=== PATIENT | female | born 1990 | race American Indian/Alaskan Native ===

== ENCOUNTER 2017-11-13 00:36 | Emergency (ER) | payer SELFPAY ==
[2017-11-13] MEDS ORDERED: NARCAN 2 MG/2 ML ONE (01:13)
[2017-11-13] MEDS ORDERED: NARCAN 2 MG/2 ML IV ONE (01:15)
--- NOTE | 2017-11-13 01:23 | Emergency Department Report ---
ED Altered Mental Status HPI - General Stated Complaint: RT EYE LACERATION/ETOH Time Seen by Provider: 11/13/17 01:22 - History of Present Illness Initial Comments: Brought by EMS for evaluation of ethanol intoxication altered mental status does arouse to sternal rub good saturation good airway but intoxicated and uncooperative with 1 cm laceration just below the right eyebrow. Patient intoxicated and no answer any other questions MD Complaint: altered mental status, confusion, intoxication -: unknown Context: alcohol abuse - Related Data Previous Rx's Medication Instructions Recorded Last Taken Type Omeprazole [PriLOSEC] 20 mg PO QDAY #30 capsule. 05/23/14 06/10/14 Rx Ciprofloxacin HCl [Cipro] 500 mg PO Q12H #14 tab 06/12/14 Unknown Rx HYDROcodone/APAP 5-325 [[place] 1 each PO Q6HR PRN #10 tablet 06/12/14 Unknown Rx 5-325 mg TAB] Ondansetron [Zofran Odt] 4 mg PO Q4-6H PRN #14 tab.rapdis 06/12/14 Unknown Rx Pantoprazole [Protonix] 40 mg PO QDAY #30 tablet 06/12/14 Unknown Rx Ranitidine HCl [Zantac] 300 mg PO QDAY #30 tablet 06/12/14 Unknown Rx Butalbit/Acetamin/Caff/Codeine 1 each PO Q6H #12 capsule 06/15/14 Unknown Rx [Fioricet-Cod [id number] Cap] Ibuprofen [Motrin] 600 mg PO Q8H PRN #15 tablet 06/15/14 Unknown Rx Ondansetron [Zofran Odt] 4 mg PO Q6H #20 tab.rapdis 04/04/15 Unknown Rx Sulfamethoxazole/Trimethoprim 1 each PO BID #14 tablet 04/04/15 Unknown Rx [Bactrim Ds] traMADol [Ultram] 50 mg PO Q6HR PRN #14 tablet 04/04/15 Unknown Rx Allergies Allergy/AdvReac Type Severity Reaction Status Date / Time No Known Allergies Allergy Verified 06/12/14 00:01 ED Review of Systems ROS: Stated complaint: RT EYE LACERATION/ETOH Other details as noted in HPI Comment: Unobtainable due to pts medical conditions Constitutional: denies: diaphoresis, fever, malaise, weakness Respiratory: denies: shortness of breath, SOB with exertion ED Past Medical Hx - Past Medical History Hx GERD: Yes - Surgical History Additional Surgical History: bladder hemorhoid, - Social History Smoking Status: Current Some Day Smoker Substance Use Type: None - Medications Home Medications: Home Medications Medication Instructions Recorded Confirmed Last Taken Type Omeprazole [PriLOSEC] 20 mg PO QDAY #30 capsule. 05/23/14 06/12/14 06/10/14 Rx Ciprofloxacin HCl [Cipro] 500 mg PO Q12H #14 tab 06/12/14 Unknown Rx HYDROcodone/APAP 5-325 [[place] 1 each PO Q6HR PRN #10 tablet 06/12/14 Unknown Rx 5-325 mg TAB] Ondansetron [Zofran Odt] 4 mg PO Q4-6H PRN #14 tab.rapdis 06/12/14 Unknown Rx Pantoprazole [Protonix] 40 mg PO QDAY #30 tablet 06/12/14 Unknown Rx Ranitidine HCl [Zantac] 300 mg PO QDAY #30 tablet 06/12/14 Unknown Rx Butalbit/Acetamin/Caff/Codeine 1 each PO Q6H #12 capsule 06/15/14 Unknown Rx [Fioricet-Cod [id number] Cap] Ibuprofen [Motrin] 600 mg PO Q8H PRN #15 tablet 06/15/14 Unknown Rx Ondansetron [Zofran Odt] 4 mg PO Q6H #20 tab.rapdis 04/04/15 Unknown Rx Sulfamethoxazole/Trimethoprim 1 each PO BID #14 tablet 04/04/15 Unknown Rx [Bactrim Ds] traMADol [Ultram] 50 mg PO Q6HR PRN #14 tablet 04/04/15 Unknown Rx ED Physical Exam - General Limitations: Altered Mental Status General appearance: appears intoxicated - Head Head exam: Present: other (laceration just below the right eyebrow) - Eye Eye exam: Present: PERRL, EOMI Pupils: Present: normal accommodation - ENT ENT exam: Present: normal exam, normal orophraynx, other (protecting airway with good gag) - Neck Neck exam: Present: normal inspection - Respiratory Respiratory exam: Present: normal lung sounds bilaterally. Absent: respiratory distress, wheezes, rales, rhonchi, stridor, accessory muscle use - Cardiovascular Cardiovascular Exam: Present: regular rate, normal rhythm, normal heart sounds. Absent: rubs, gallop - GI/Abdominal GI/Abdominal exam: Present: soft. Absent: distended, tenderness, guarding, rebound, mass, bruit, pulsatile mass - Extremities Exam Extremities exam: Present: normal inspection - Neurological Exam Neurological exam: Absent: motor sensory deficit ED Course Vital Signs 11/13/17 11/13/17 11/13/17 01:10 01:16 01:30 Pulse Rate 75 71 Respiratory 18 24 21 Rate Blood Pressure 110/70 100/66 O2 Sat by Pulse 95 99 Oximetry 11/13/17 11/13/17 11/13/17 01:45 02:00 02:16 Pulse Rate 74 80 71 Respiratory 14 13 13 Rate Blood Pressure 109/71 109/71 106/66 O2 Sat by Pulse 98 99 100 Oximetry 11/13/17 11/13/17 11/13/17 02:30 02:46 04:08 Pulse Rate 79 87 Respiratory 18 14 12 Rate Blood Pressure 112/72 109/69 O2 Sat by Pulse 100 99 100 Oximetry 11/13/17 04:09 Pulse Rate 84 Respiratory 13 Rate Blood Pressure 109/69 O2 Sat by Pulse Oximetry - Laceration /Wound Repair Face Wound Location: face Wound Length (cm): 1 Wound's Depth, Shape: superficial Wound Explored: no foreign body removed Wound Repaired With: Steri-strips (no comp.), Dermabond - Lab Data Result diagrams: 11/13/17 01:44 11/13/17 01:44 Lab Results 11/13/17 11/13/17 11/13/17 Range/Units 01:44 01:44 01:44 WBC (4.5-11.0) K/mm3 RBC (3.65-5.03) M/mm3 Hgb (10.1-14.3) gm/dl Hct (30.3-42.9) % MCV (79-97) fl MCH (28-32) pg MCHC (30-34) % RDW (13.2-15.2) % Plt Count (140-440) K/mm3 Lymph # Add Manual Diff Total Counted Seg Neuts % (Manual) (40.0-70.0) % Band Neutrophils % % Lymphocytes % (Manual) (13.4-35.0) % Reactive Lymphs % (Man) % Monocytes % (Manual) (0.0-7.3) % Eosinophils % (Manual) (0.0-4.3) % Basophils % (Manual) (0.0-1.8) % Metamyelocytes % % Myelocytes % % Promyelocytes % % Blast Cells % % Nucleated RBC % Seg Neutrophils # Man (1.8-7.7) K/mm3 Band Neutrophils # K/mm3 Lymphocytes # (Manual) (1.2-5.4) K/mm3 Abs React Lymphs (Man) K/mm3 Monocytes # (Manual) (0.0-0.8) K/mm3 Eosinophils # (Manual) (0.0-0.4) K/mm3 Basophils # (Manual) (0.0-0.1) K/mm3 Metamyelocytes # K/mm3 Myelocytes # K/mm3 Promyelocytes # K/mm3 Blast Cells # K/mm3 WBC Morphology Hypersegmented Neuts Hyposegmented Neuts Hypogranular Neuts Smudge Cells Toxic Granulation Toxic Vacuolation Dohle Bodies Pelger-Huet Anomaly Lesley Rods Platelet Estimate Clumped Platelets Plt Clumps, EDTA Large Platelets Giant Platelets Platelet Satelliting Plt Morphology Comment RBC Morphology Dimorphic RBCs Polychromasia Hypochromasia Poikilocytosis Anisocytosis Microcytosis Macrocytosis Spherocytes Pappenheimer Bodies Sickle Cells Target Cells Tear Drop Cells Ovalocytes Helmet Cells [place]uel Garcia Bodies [place] Rings [place] Cells Bite Cells Crenated Cell Elliptocytes Acanthocytes (Spur) Rouleaux Hemoglobin C Crystals Schistocytes Malaria parasites Jourdan Bodies Hem Pathologist Commnt Sodium 148 H (137-145) mmol/L Potassium 3.7 (3.6-5.0) mmol/L Chloride 108.7 H (98-107) mmol/L Carbon Dioxide 22 (22-30) mmol/L Anion Gap 21 mmol/L BUN 10 (7-17) mg/dL Creatinine 0.7 (0.7-1.2) mg/dL Estimated GFR > 60 ml/min BUN/Creatinine Ratio 14 % Glucose 103 H (65-100) mg/dL Calcium 8.9 (8.4-10.2) mg/dL HCG, Qual Negative (Negative) Urine Color (Yellow) Urine Turbidity (Clear) Urine pH (5.0-7.0) Ur Specific [place] (1.003-1.030) Urine Protein (Negative) mg/dL Urine Glucose (UA) (Negative) mg/dL Urine Ketones (Negative) mg/dL Urine Blood (Negative) Urine Nitrite (Negative) Urine Bilirubin (Negative) Urine Urobilinogen (<2.0) mg/dL Ur Leukocyte Esterase (Negative) Urine WBC (Auto) (0.0-6.0) /HPF Urine RBC (Auto) (0.0-6.0) /HPF U Epithel Cells (Auto) (0-13.0) /HPF Urine Bacteria (Auto) (Negative) /HPF Urine Mucus /HPF Urine Opiates Screen Urine Methadone Screen Ur Barbiturates Screen Ur Phencyclidine Scrn Ur Amphetamines Screen U Benzodiazepines Scrn Urine Cocaine Screen U Marijuana (THC) Screen Drugs of Abuse Note Plasma/Serum Alcohol 0.45 H (0-0.07) gm% 11/13/17 11/13/17 11/13/17 Range/Units 01:44 04:01 04:01 WBC 9.7 (4.5-11.0) K/mm3 RBC 5.80 H (3.65-5.03) M/mm3 Hgb 13.6 (10.1-14.3) gm/dl Hct 42.4 (30.3-42.9) % MCV 73 L (79-97) fl MCH 24 L (28-32) pg MCHC 32 (30-34) % RDW 16.5 H (13.2-15.2) % Plt Count 226 (140-440) K/mm3 Lymph # Casting Machine Operator Helper Add Manual Diff Complete Total Counted 100 Seg Neuts % (Manual) 43.0 (40.0-70.0) % Band Neutrophils % 0 % Lymphocytes % (Manual) 52.0 H (13.4-35.0) % Reactive Lymphs % (Man) 1.0 % Monocytes % (Manual) 4.0 (0.0-7.3) % Eosinophils % (Manual) 0 (0.0-4.3) % Basophils % (Manual) 0 (0.0-1.8) % Metamyelocytes % 0 % Myelocytes % 0 % Promyelocytes % 0 % Blast Cells % 0 % Nucleated RBC % Not Reportable Seg Neutrophils # Man 4.2 (1.8-7.7) K/mm3 Band Neutrophils # 0.0 K/mm3 Lymphocytes # (Manual) 5.0 (1.2-5.4) K/mm3 Abs React Lymphs (Man) 0.1 K/mm3 Monocytes # (Manual) 0.4 (0.0-0.8) K/mm3 Eosinophils # (Manual) 0.0 (0.0-0.4) K/mm3 Basophils # (Manual) 0.0 (0.0-0.1) K/mm3 Metamyelocytes # 0.0 K/mm3 Myelocytes # 0.0 K/mm3 Promyelocytes # 0.0 K/mm3 Blast Cells # 0.0 K/mm3 WBC Morphology Not Reportable Hypersegmented Neuts Not Reportable Hyposegmented Neuts Not Reportable Hypogranular Neuts Not Reportable Smudge Cells Not Reportable Toxic Granulation Not Reportable Toxic Vacuolation Not Reportable Dohle Bodies Not Reportable Pelger-Huet Anomaly Not Reportable Lesley Rods Not Reportable Platelet Estimate Consistent w auto Clumped Platelets Not Reportable Plt Clumps, EDTA Not Reportable Large Platelets Not Reportable Giant Platelets Not Reportable Platelet Satelliting Not Reportable Plt Morphology Comment Not Reportable RBC Morphology Not Reportable Dimorphic RBCs Not Reportable Polychromasia Not Reportable Hypochromasia Not Reportable Poikilocytosis Not Reportable Anisocytosis Not Reportable Microcytosis Not Reportable Macrocytosis Not Reportable Spherocytes Not Reportable Pappenheimer Bodies Not Reportable Sickle Cells Not Reportable Target Cells Not Reportable Tear Drop Cells Not Reportable Ovalocytes Not Reportable Helmet Cells Not Reportable [place]-Manuel Garcia Bodies Not Reportable [place] Rings Not Reportable [place] Cells Not Reportable Bite Cells Not Reportable Crenated Cell Not Reportable Elliptocytes Not Reportable Acanthocytes (Spur) Not Reportable Rouleaux Not Reportable Hemoglobin C Crystals Not Reportable Schistocytes Not Reportable Malaria parasites Not Reportable Jourdan Bodies Not Reportable Hem Pathologist Commnt No Sodium (137-145) mmol/L Potassium (3.6-5.0) mmol/L Chloride (98-107) mmol/L Carbon Dioxide (22-30) mmol/L Anion Gap mmol/L BUN (7-17) mg/dL Creatinine (0.7-1.2) mg/dL Estimated GFR ml/min BUN/Creatinine Ratio % Glucose (65-100) mg/dL Calcium (8.4-10.2) mg/dL HCG, Qual (Negative) Urine Color Yellow (Yellow) Urine Turbidity Clear (Clear) Urine pH 6.0 (5.0-7.0) Ur Specific [place] 1.010 (1.003-1.030) Urine Protein <15 mg/dl (Negative) mg/dL Urine Glucose (UA) Neg (Negative) mg/dL Urine Ketones Neg (Negative) mg/dL Urine Blood Sm (Negative) Urine Nitrite Pos (Negative) Urine Bilirubin Neg (Negative) Urine Urobilinogen < 2.0 (<2.0) mg/dL Ur Leukocyte Esterase Neg (Negative) Urine WBC (Auto) 1.0 (0.0-6.0) /HPF Urine RBC (Auto) 3.0 (0.0-6.0) /HPF U Epithel Cells (Auto) 4.0 (0-13.0) /HPF Urine Bacteria (Auto) 1+ (Negative) /HPF Urine Mucus Few /HPF Urine Opiates Screen Presumptive negative Urine Methadone Screen Presumptive negative Ur Barbiturates Screen Presumptive negative Ur Phencyclidine Scrn Presumptive negative Ur Amphetamines Screen Presumptive negative U Benzodiazepines Scrn Presumptive negative Urine Cocaine Screen Presumptive negative U Marijuana (THC) Screen Presumptive positive Drugs of Abuse Note Disclamer Plasma/Serum Alcohol (0-0.07) gm% - Radiology Data Radiology results: report reviewed - Medical Decision Making CT head and C-spine ordered an negative by radiologist patient did have head trauma and x-rays were therefore obtained but these are negative. Laboratory studies do so as not intoxication as well as THC urinalysis and the remainder laboratory studies show dehydration otherwise unremarkable. Patient was observed in ED and is more arousable. Sx symptoms are consistent with ethanol and THC intoxication stable for outpatient follow-up with family member since she is ambulatory at this time. She denies any other complaints laceration was repaired Jeanmarie Coma Scale is 15 nonfocal neuro exam. Critical care attestation.: If time is entered above; I have spent that time in minutes in the direct care of this critically ill patient, excluding procedure time. ED Disposition Clinical Impression: Alcohol intoxication, Mild tetrahydrocannabinol (THC) abuse Disposition: DC-01 TO HOME OR SELFCARE Is pt being admited?: No Condition: Stable Instructions: Alcohol Intoxication (ED) Additional Instructions: See her doctor in 2 days return if worse Referrals: PRIMARY CARE,MD [Primary Care Provider] - 3-5 Days Time of Disposition: 05:26
[2017-11-13 02:12] LABS: Hematocrit 42.4 % (30.3-42.9); Hemoglobin 13.6 gm/dl (10.1-14.3); Mean Corpuscular HGB Conc 32 % (30-34); Mean Corpuscular Volume 73 fl (79-97); Platelet Count 226 K/mm3 (140-440); Red Cell Distribution Width 16.5 % (13.2-15.2); White Blood Count 9.7 K/mm3 (4.5-11.0)
[2017-11-13 02:20] LABS: Anion Gap 21 mmol/L; BUN/Creatinine Ratio 14; Blood Urea Nitrogen 10 mg/dL (7-17); Calcium 8.9 mg/dL (8.4-10.2); Carbon Dioxide 22 mmol/L (22-30); Chloride 108.7 mmol/L (98-107); Glucose 103 mg/dL (65-100); Potassium 3.7 mmol/L (3.6-5.0); Sodium 148 mmol/L (137-145)
[2017-11-13 02:28] LABS: Mean Corpuscular Hemoglobin 24 pg (28-32)
--- NOTE | 2017-11-13 03:27 | Cat Scan Report ---
FINAL REPORT EXAM: CT HEAD/BRAIN WO CON HISTORY: fall lac Rt forehead TECHNIQUE: Routine axial imaging was obtained of the brain without IV contrast. FINDINGS: The ventricular system is appropriate in size and is symmetric. There is no evidence of acute stroke or hemorrhage. The basal cisterns appear normal. There is no evidence of skull fracture or scalp injury. The visualized sinuses are clear. The mastoid air cells are well pneumatized. IMPRESSION: Within normal limits.
--- NOTE | 2017-11-13 03:45 | Cat Scan Report ---
FINAL REPORT EXAM: CT CERVICAL SPINE WO CON HISTORY: fall TECHNIQUE: Routine axial imaging was obtained of the cervical spine without IV contrast. Sagittal and coronal reconstructions were reviewed. FINDINGS: The disc heights and alignment appear normal. The canal size is normal. The nerve roots exit normally. The pre vertebral soft tissues and C1-C2 articulation appear intact. IMPRESSION: Within normal limits.
[2017-11-13] MEDS ORDERED: BOOSTRIX IM ONE (04:06)
[2017-11-13 04:07] LABS: Urine Drugs of Abuse Note Disclamer
[2017-11-13 04:23] LABS: Basophils % (Manual) 0 % (0.0-1.8); Blastocytes % (Manual) 0 %; Diff Status Complete; Eosinophils % (Manual) 0 % (0.0-4.3); Platelet Estimate Consistent w Auto
[2017-11-13] MEDS: NACL 0.9% 1000 ML 1,000 ML IV ONE ×2 (04:27→07:20)
[2017-11-13 04:29] LABS: Bilirubin,Urine NEG (Negative); Blood,Urine SM (Negative); Ketones,Urine NEG (Negative); Protein,Urine <15 mg/dL mg/dL (Negative); Urobilinogen,Urine < 2.0 mg/dL (<2.0)
[2017-11-13 04:30] LABS: Bacteria,Urine 1+ /HPF (Negative); Leukocyte Esterase,Urine NEG (Negative); Mucus,Urine FEW /HPF; Nitrite,Urine POS (Negative)
[2017-11-13] MEDS ORDERED: NACL 0.9% 1000 ML 1,000 ML ONE (07:19)
[2017-11-13 08:47] VITALS: BP 97/58
== END 2017-11-13 09:01 | disposition home or self-care (01) ==
LOC: ED 00:36
DX: S01.111A Laceration without foreign body of right eyelid and periocular area, initial encounter (principal); F10.120 Alcohol abuse with intoxication, uncomplicated; F19.10 Other psychoactive substance abuse, uncomplicated; K21.9 Gastro-esophageal reflux disease without esophagitis; F17.200 Nicotine dependence, unspecified, uncomplicated; X58.XXXA Exposure to other specified factors, initial encounter; Y93.89 Activity, other specified; Y92.89 Other specified places as the place of occurrence of the external cause; Y99.8 Other external cause status
CPT/HCPCS: 12011; 36415; 70450; 72125; 80048; 80307; 81001; 84703; 85007; 85025; 90471; 90715; 96361; 96374; 99285; G0480; J2310; J7030; 80320